=== PATIENT | female | born 1955 | race Caucasian/White ===

== ENCOUNTER 2019-10-24 06:59 | Outpatient (CLI) | payer BC, SELFPAY ==
--- NOTE | 2019-10-24 07:20 | MM_ITS ---
WS: [id number] BILATERAL DIGITAL SCREENING MAMMOGRAPHY WITH CAD CLINICAL INFORMATION: SCREENING HISTORY: Screening mammogram. No current complaints. COMPARISON: None. TECHNIQUE: Bilateral CC and MLO views. FINDINGS: The breasts are composed of heterogeneous fibroglandular density tissue, which can limit the detectio n of small underlying mass lesions. No suspicious mass, asymmetry, calcifications, or architectural d istortion. No evidence of malignancy. Lucent centered calcifications. MM/[place] [id number] IMPRESSION: BI-RADS: 2-Benign FOLLOW UP: 1 Year Follow-up Recommend return to annual screening mammography.
== END 2019-10-24 07:00 | disposition home or self-care (01) ==
LOC: RADSHAW 07:06
PROVIDERS: PCP Nurse Practitioner Family; Visit Provider Nurse Practitioner Family
DX: Z12.31 Encounter for screening mammogram for malignant neoplasm of breast (principal)
CPT/HCPCS: 77067

== ENCOUNTER → 2019-11-16 08:29 | Outpatient (BNVA) | payer BC, SELFPAY | PROVIDERS: PCP Nurse Practitioner Family; Referring Provider Nurse Practitioner Family; Visit Provider Anesthesiology Pain Medicine | DX: M47.816 Spondylosis without myelopathy or radiculopathy, lumbar region (principal); M54.16 Radiculopathy, lumbar region; M51.36 Other intervertebral disc degeneration, lumbar region; M54.9 Dorsalgia, unspecified; M62.830 Muscle spasm of back; Z79.891 Long term (current) use of opiate analgesic | CPT/HCPCS: 99204 ==

== ENCOUNTER 2019-11-24 09:51 | Outpatient (CLI) | payer BC, SELFPAY ==
--- NOTE | 2019-11-24 10:27 | MR_ITS ---
WS: [id number] MRI LUMBAR SPINE NONCONTRAST TECHNIQUE: Sagittal T1, T2 and STIR imaging. Axial T1 and T2 imaging. CLINICAL INFORMATION: M54.16 Radiculopathy, lumbar region COMPARISON: None. FINDINGS: Mild lumbar curve. No acute compression. No high-grade central canal stenosis. L1-L2: Right eccentric bulge with a tiny annular fissure. Mild right and no significant left foramina l narrowing. Spinal canal is patent. L2-L3: Small left foraminal protrusion contacts the exiting left L2 nerve root with mild left foramin al narrowing. Narrowing of the left subarticular recess. Right foramen is patent. Mild facet arthropa thy. L3-L4: Mild annular bulging with slight effacement of the ventral thecal sac. Slight narrowing of the left subarticular recess. Foramen are patent. L4-L5: Mild disc bulging with mild to moderate central canal stenosis. Impingement traversing left L5 nerve root in the subarticular recess. Moderate facet arthropathy contributes to impingement on the left subarticular recess. Left facet osteophyte or calcified synovial cyst impinges the subarticular recess. Small facet effusions. Mild right foraminal narrowing. L5-S1: No significant disc bulging. Spinal canal foramen are patent. Mild/moderate facet arthropathy. Visualized pelvic bony structures: Normal. Paravertebral soft tissues: Normal. MR/MR lumbar spine wo con* [id number] IMPRESSION: 1. Mild lumbar curve. No acute compression. 2. Mild disc bulging L4-5 with mild to moderate central canal stenosis. 3. Left facet protruding osteophyte or calcified synovial cyst impinges the mederos barticular recess and traversing left L5 nerve root. Recommend correlation left L5 nerve root symptoms. 4. Small left foraminal protrusion L2-3 with mild left foraminal narrowing. 5. Narrowing of the left L3-4 subarticular recess. 6. Mild right L4-5 foraminal narrowing. 7. Moderate facet arthropathy worse L4-5.
--- NOTE | 2019-11-24 11:00 | XR_ITS ---
WS: [id number] LUMBAR SPINE FLEXION AND EXTENSION TECHNIQUE: 3 views of the lumbar spine: Lateral neutral, flexion, and extension views. CLINICAL INFORMATION: pain COMPARISON: None. FINDINGS: Slight anterolisthesis L4 on L5 measuring 2.5 mm. No instability on flexion-extension. Mild disc spac e narrowing L4-L5 and L5-S1. Aortic calcification. Moderate facet arthropathy L4-L5 and L5-S1. XR/XR lumbar spine f/e only [id number] IMPRESSION: No instability on flexion-extension
== END 2019-11-24 09:52 | disposition home or self-care (01) ==
LOC: RADWPI 09:55
PROVIDERS: Family Provider Nurse Practitioner Family; PCP Nurse Practitioner Family; Visit Provider Anesthesiology Pain Medicine
DX: M54.16 Radiculopathy, lumbar region (principal); M47.816 Spondylosis without myelopathy or radiculopathy, lumbar region; M48.061 Spinal stenosis, lumbar region without neurogenic claudication; M51.26 Other intervertebral disc displacement, lumbar region
CPT/HCPCS: 72120; 72148

== ENCOUNTER → 2019-11-29 13:44 | Outpatient (BNVA) | payer BC, SELFPAY | PROVIDERS: PCP Nurse Practitioner Family; Visit Provider Anesthesiology Pain Medicine | DX: M47.816 Spondylosis without myelopathy or radiculopathy, lumbar region (principal); M51.36 Other intervertebral disc degeneration, lumbar region; M54.16 Radiculopathy, lumbar region; M54.9 Dorsalgia, unspecified; M62.830 Muscle spasm of back | CPT/HCPCS: 64483; 64484; 99213; J1040; J3490 ==

== ENCOUNTER → 2019-12-13 09:27 | Outpatient (BNVA) | payer BC, SELFPAY | PROVIDERS: PCP Nurse Practitioner Family; Visit Provider Anesthesiology Pain Medicine | DX: M51.36 Other intervertebral disc degeneration, lumbar region (principal); M47.816 Spondylosis without myelopathy or radiculopathy, lumbar region; M54.16 Radiculopathy, lumbar region; M54.9 Dorsalgia, unspecified; M62.830 Muscle spasm of back; M79.605 Pain in left leg; Z79.891 Long term (current) use of opiate analgesic | CPT/HCPCS: 99213 ==

== ENCOUNTER 2021-08-21 08:36 | Outpatient (CLI) | payer BC, SELFPAY ==
--- NOTE | 2021-08-21 09:26 | CT_ITS ---
WS: [id number] CT ABDOMEN AND PELVIS NONCONTRAST HISTORY: ABNORMAL WEIGHT LOSS/FATIGUE/HEMATURIA/LOWER ABD PAIN TECHNIQUE: Imaging performed through the abdomen and pelvis. Coronal and sagittal reformats are submi tted. All CT scans at [facility] use at least one of these dose optimization techniques: auto mated exposure control; mA and/or kV adjustment per patient size (includes targeted exams where dose is matched to clinical indication); or iterative reconstruction. DLP: 1076.74 mGy.cm COMPARISON: None available. Lower thorax: Lobulated 10 x 6 mm noncalcified nodule in the posterior RIGHT lower lobe. Calcified no dules at the LEFT lung base. On the workers compensation consultant localizer there are additional nodules which are not includ ed in the mid to lower RIGHT lung. These may be calcified granulomas but should be further evaluated. Heart is normal size. Small hiatal hernia. Liver: Hepatic steatosis adjacent to the falciform ligament. No bile duct dilatation. Gallbladder: Gallbladder is present and normally distended but contains numerous stones. These are ca lcified stones measuring up to 1.8 cm in diameter. No adjacent inflammation. Pancreas: Normal size and attenuation. Normal pancreatic duct. No pancreatitis or mass. Spleen: Normal. Adrenal glands: Normal. No mass. Right kidney: Enlarged kidney extends over length of 14.2 cm with perinephric stranding and edema. Mo derate to severe dilatation of the renal pelvis. There is calyceal dilatation. There are several calc ifications in the proximal ureter. The more distal calcification measures 9 x 9 mm. The more proximal calcification is larger extending over a length of 18 mm and transversely by 10 mm. There is mild pe riureteral stranding noted additional ureteral calcifications are identified. Low-attenuation 10 mm m ass in the superior pole is probably a cyst. Left kidney: Normal size kidney. No hydronephrosis or mass. No renal calcifications. Aorta: Extensive atherosclerotic plaque within the aorta. Calcification continues into the iliac keisha sergei bilaterally. No free fluid, intraperitoneal air or significant lymphadenopathy. GI tract: Normal distention of the stomach with contrast. No small bowel obstruction. Marked fecal re tention throughout the colon. The appendix is normal. Abdominal wall: Small umbilical hernia contains fat only. Pelvis: Prior hysterectomy. No adnexal mass. No adenopathy. Urinary bladder is not distended. Osseous structures: L4 anterolisthesis by [address]/CT abdomen pelvis wo con [id number] IMPRESSION: 1. Moderate to severe RIGHT hydronephrosis secondary to ureteral calcification s. There are 2 large calcifications in the proximal RIGHT ureter. The more dist al calcification measures 9 x 9 mm. More proximal calcification measures 18 x 1 0 mm. Follow-up with urology. 2. Cholelithiasis without acute cholecystitis or bile duct dilatation. Large s tones are present in the gallbladder. 3. Moderate atherosclerosis aorta. 4. No ascites or adenopathy identified. 5. Diffuse constipation. 6. Indeterminate lobulated nodule at the RIGHT lung base measures 10 x 6 mm. T here are additional nodules in the central RIGHT lung seen on the localizer miryam ging. These may be calcified. Recommend follow-up chest CT for further evaluati on. 7. Prior hysterectomy. Notified Gloria Sanders NP at 08/21/2021 12:49 PM.
[2021-08-21] MEDS: iohexol 300 mg/mL 50 mL Btl PO (12:11)
== END 2021-08-21 08:37 | disposition home or self-care (01) ==
PROVIDERS: PCP Nurse Practitioner Family; Visit Provider Nurse Practitioner Family
DX: R11.2 Nausea with vomiting, unspecified (principal); R63.4 Abnormal weight loss; R53.83 Other fatigue; R31.9 Hematuria, unspecified; R10.30 Lower abdominal pain, unspecified
CPT/HCPCS: 74176

== ENCOUNTER 2021-08-21 15:00 | Emergency (ER) | payer BC, SELFPAY ==
[2021-08-21 16:36] VITALS: BP 184/80; PULSE 61; RESP 18; TEMP 36.1; O2SAT 99
[2021-08-21 18:41] LABS: Basophils # 0.1 10^3/uL (0.0-0.1); Basophils % 0.6 %; Eosinophils # 0.2 10^3/uL (0.0-0.8); Eosinophils % 1.3 %; Hematocrit 46.4 % (37.0-47.0); Hemoglobin 15.4 g/dL (11.5-15.3); Lymphocytes # 1.7 10^3/uL (0.8-4.8); Mean Corpuscular HGB Conc 33.2 g/dL (30.0-36.0); Mean Corpuscular Hemoglobin 30.1 pg (28.0-34.0); Mean Corpuscular Volume 90.8 fl (81-99); Monocytes # 0.9 10^3/uL (0.2-0.9); Monocytes % 8.1 %; Neutrophils # 8.34 10^3/uL (1.8-7.7); Neutrophils % 74.7 %; Nucleated Red Blood Cells % 0 %; Platelet Count 279 10^3/cmm (130-400); Red Blood Count 5.11 10^6/uL (4.1-5.3); Red Cell Distribution Width 11.4 % (12.1-15.1); White Blood Count 11.2 10^3/uL (4.0-10.0)
[2021-08-21 19:01] LABS: Alanine Aminotransferase 10 U/L (0-33); Albumin Level 4.1 g/dL (3.5-5.2); Alkaline Phosphatase 67 IU/L (35-105); Aspartate Amino Transferase 12 U/L (0-32); Blood Urea Nitrogen 20 mg/dL (8-23); Calcium 9.9 mg/dL (8.5-10.5); Carbon Dioxide 26 mmol/L (22-29); Chloride 94 mmol/L (98-107); Globulin 3.4 g/dL (1.3-4.6); Glomerular Filtration Rate 45.1 mL/min (90-130); Glucose 94 mg/dL (65-115); Lipase 19 U/L (13-60); Osmolality Calculated 278 mOsm/kg (285-295); Sodium 133 mmol/L (136-145); Total Bilirubin 0.7 mg/dL (0.15-1.2); Total Protein 7.5 g/dL (6.6-8.7)
[2021-08-21 19:11] VITALS: BP 168/66; PULSE 62; RESP 18; O2SAT 97
--- NOTE | 2021-08-21 19:31 | W.ED.GENADLT ---
HPI - General Adult General: Chief complaint: General Medical Stated complaint: Doctor sent here for possible surgery Time Seen by Provider: 08/21/21 19:23 Source: patient Mode of arrival: ambulatory Limitations: no limitations History of Present Illness: 66-year-old female who states she been having some flank pain nausea vomiting over the last 2 days. States that her PCP Thursday had blood work drawn had an outpatient CT scan that was done today does show a large left-sided kidney stone with some hydronephrosis states her pain has been improving her pain currently is a 1-2 out of 10 no recent vomiting no fever no dysuria Associated symptoms: Reports vomiting; Deny chest pain, dyspnea, headache(s) or rash Review of Systems Const: Denies: fever(s), chills, body aches or change in appetite Eyes: Denies: blurry vision or eye discomfort ENMT: Denies: throat pain or dental pain Card: Denies: chest pain Resp: Denies: dyspnea GI: Reports: abdominal pain and vomiting : Denies: dysuria Musc: Denies: neck pain or back pain Skin/Breast: Denies: rash Neuro: Denies: headache(s) Psych: Denies: depression Dave/Lymph: Denies: easy bruising All/Imm: Denies: urticaria PFSH ED PFSH: Family History Other Cancer Denies family history of Anesthesia complication Bleeding disorder Social History Smoking and tobacco status: never smoked Physical Exam Const: COMMON NORMALS: no acute distress, patient oriented x3 and healthy appearing HENMT: COMMON NORMALS: normocephalic and atraumatic HEAD & SCALP: normocephalic and atraumatic Eye: COMMON NORMALS: Equal, round and reactive pupils present and EOMs intact bilaterally PUPIL: Yes Equal, round and reactive pupils present Neck/C-Spine: COMMON NORMALS: full ROM and supple Chest: COMMONS NORMALS: normal inspection of the chest and normal palpation of entire chest wall Resp: COMMON NORMALS: normal respiratory effort, No retractions, No use of accessory muscles and clear to auscultation bilaterally AUSCULTATION: clear to auscultation bilaterally Cardio: COMMON NORMALS: regular rate, regular rhythm and No murmurs present (Cardio) RATE: regular rate RHYTHM: regular rhythm GI: COMMON NORMALS: Normal to inspection, nondistended, normoactive bowel sounds present, Soft to palpation, non-tender and no masses PALPATION: Yes Soft to palpation Extremity: COMMON NORMALS: normal to inspection and full ROM Neuro: COMMON NORMALS: patient oriented x3, moves all extremities and no focal motor deficits Psych: COMMON NORMALS: mental status grossly normal, Normal thought process present and cooperative THOUGHT PROCESS: Normal thought process present Skin: COMMON NORMALS: no rashes or lesions noted and no wounds GENERAL SKIN EXAM: no rashes or lesions noted Course Vital Signs: Vital signs: Vital Signs Temperature 96.9 F L 08/21/21 16:36 Pulse Rate 56 L 08/21/21 20:11 Respiratory Rate 18 08/21/21 20:11 Blood Pressure 139/85 08/21/21 20:11 Pulse Oximetry 96 08/21/21 20:11 [facility] - General Adult Medical Decision Making Patient presents here with a kidney stone patient's been pain-free I did speak to urologist Dr. Ferreira patient's kidney function here is normal no signs urinary tract infection. Patient is stable for discharge she is to follow-up with Dr. Ferreira this week she has any worsening symptoms she is to return she understands agrees to plan. Lab Data : 08/21/21 18:30 08/21/21 18:30 Laboratory Results WBC 11.2 10^3/uL (4.0-10.0) H 08/21/21 18:30 RBC 5.11 10^6/uL (4.1-5.3) 08/21/21 18:30 Hgb 15.4 g/dL (11.5-15.3) H 08/21/21 18:30 Hct 46.4 % (37.0-47.0) 08/21/21 18:30 MCV 90.8 fl (81-99) 08/21/21 18:30 MCH 30.1 pg (28.0-34.0) 08/21/21 18:30 MCHC 33.2 g/dL (30.0-36.0) 08/21/21 18:30 RDW 11.4 % (12.1-15.1) L 08/21/21 18:30 Plt Count 279 10^3/cmm (130-400) 08/21/21 18:30 MPV 11.0 fL (7.4-10.4) H 08/21/21 18:30 Neut % (Auto) 74.7 % 08/21/21 18:30 Lymph % (Auto) 15.0 % 08/21/21 18:30 [place] % (Auto) 8.1 % 08/21/21 18: Eos % (Auto) 1.3 % 08/21/21 18: Baso % (Auto) 0.6 % 08/21/21 18:30 Neut # (Auto) 8.34 10^3/uL (1.8-7.7) H 08/21/21 18: Lymph # (Auto) 1.7 10^3/uL (0.8-4.8) 08/21/21 18: [place] # (Auto) 0.9 10^3/uL (0.2-0.9) 08/21/21 18: Eos # (Auto) 0.2 10^3/uL (0.0-0.8) 08/21/21 18: Baso # (Auto) 0.1 10^3/uL (0.0-0.1) 08/21/21: Nucleated RBC % (auto) 0 % 08/21/21: Nucleated RBCs # 0.0 /100WBC 08/21/21 18:30 Sodium 133 mmol/L (136-145) L 08/21/21 18: Potassium 4.0 mmol/L (3.5-5.1) 08/21/21: Chloride 94 mmol/L (98-107) L 08/21/21 18: Carbon Dioxide 26 mmol/L (22-29) 08/21/21 18:30 Anion Gap 17.0 (5-19) 08/21/21 18:30 BUN 20 mg/dL (8-23) 08/21/21 18: Creatinine 1.2 mg/dL (0.5-0.9) H 08/21/21 18:30 GFR Calculation 45.1 mL/min (90-130) L 08/21/21: Glucose 94 mg/dL (65-115) 08/21/21 18: Calculated Osmolality 278 mOsm/kg (285-295) L 08/21/21 18:30 Calcium 9.9 mg/dL (8.5-10.5) 08/21/21 18:30 Total Bilirubin 0.7 mg/dL (0.15-1.2) 08/21/21 18:30 AST 12 U/L (0-32) 08/21/21 18:30 ALT 10 U/L (0-33) 08/21/21 18:30 Alkaline Phosphatase 67 IU/L (35-105) 08/21/21 18:30 Total Protein 7.5 g/dL (6.6-8.7) 08/21/21 18: Albumin 4.1 g/dL (3.5-5.2) 08/21/21 18: Globulin 3.4 g/dL (1.3-4.6) 08/21/21 18: Lipase 19 U/L (13-60) 08/21/21 18:30 Urine Color Yellow (Yellow) 08/21/21 20:23 Urine Appearance Clear (CLEAR) 08/21/21 20:23 Urine pH 5 (5-7) 08/21/21 20:23 Ur Specific [place] 1.000 (1.005-1.030) L 08/21/21 20: Urine Protein Neg (Negative) 08/21/21 20: Urine Glucose (UA) Norm (Normal) 08/21/21 20: Urine Ketones 1+ (Negative) H 08/21/21 20:23 Urine Blood 3+ (Negative) H 08/21/21 20:23 Urine Nitrate Negative (Negative) 08/21/21 20: Urine Bilirubin Neg (Negative) 08/21/21 20:23 Urine Urobilinogen Norm mg/dL (Negative) 08/21/21 20: Ur Leukocyte Esterase Negative (Negative) 08/21/21 20: Amorphous Sediment Not Reportable 08/21/21 20: Discharge Plan Discharge Patient Disposition: Home Clinical Impression: Kidney stone Condition: Stable Prescriptions: New hydrocodone-acetaminophen 5-325 mg tablet 1 tab PO Q6H PRN (Reason: pain) Qty: 14 0RF ondansetron 4 mg tablet,disintegrating 4 mg PO Q6H PRN (Reason: nausea and vomiting) Qty: 14 0RF No Action atenolol 100 mg tablet 100 mg PO DAILY 0RF hydrochlorothiazide 25 mg tablet 25 mg PO DAILY 0RF lisinopril 10 mg tablet 10 mg PO DAILY 0RF meloxicam 15 mg tablet 15 mg PO DAILY 0RF simvastatin 20 mg tablet 20 mg PO DAILY 0RF gabapentin 100 mg capsule 100 mg PO TID 0RF baclofen 10 mg tablet 10 mg PO TID 0RF tramadol 50 mg tablet 50 mg PO Q6H PRN0RF Discharge Orders: Discharge ED (Routine); Ordered 08/21/21 Ordered By: Juan Alberto Weathers Referrals: Gloria Sanders NP [Primary Care Provider] - Wm Ferreira MD [Physician] - 1-3 days Discharge Diet: Advance as tolerated Discharge Activity: Resume usual activity Patient Instructions: Kidney Stones (ED), Opioid Safety Coding Level of Care Code ED Retail Store Assistant for [employer] Fwd Exam Comprehensive
[2021-08-21 19:41] VITALS: BP 158/69; PULSE 61; RESP 18; O2SAT 96
[2021-08-21] MEDS: HYDROcodone-acetaminophen 5-325 mg Tablet 1 TAB PO (19:47)
[2021-08-21 20:11] VITALS: BP 139/85; PULSE 56; RESP 18; O2SAT 96
[2021-08-21 20:46] LABS: Add Urine Microscopic? YES; Bilirubin Urine Neg (Negative); Blood Urine 3+ (Negative); Glucose Urine UA Norm (Normal); Ketones Urine 1+ (Negative); Leukocyte Esterase Urine Negative (Negative); Nitrate Urine Negative (Negative); Protein Urine Neg (Negative); Urine Appearance Clear (CLEAR); Urine Color Yellow (Yellow); Urobilinogen Urine Norm (Negative); pH Urine 5 (5-7)
[2021-08-21 21:00] VITALS: BP 131/94; PULSE 61; RESP 18; O2SAT 97
[2021-08-21 21:04] LABS: Bacteria Urine TRACE /hpf; RBC Urine 0-4 /hpf (0-2); Squamous Epithelial Cell Urine 0-4 /hpf (0-5)
[2021-08-21 21:05] LABS: Add Urine Culture? No
== END 2021-08-21 21:00 | disposition home or self-care (01) ==
PROVIDERS: Emergency Medicine; Emergency Provider Emergency Medicine; PCP Nurse Practitioner Family
DX: N20.0 Calculus of kidney (principal)
CPT/HCPCS: 80053; 81001; 83690; 85025; 99283

== ENCOUNTER 2021-08-22 08:27 | Outpatient (CLI) | payer BC, SELFPAY ==
--- NOTE | 2021-08-22 08:50 | XRR_ITS ---
PROCEDURE INFORMATION: Exam: XR Abdomen Exam date and time: 08/22/2021 9:02 AM Age: 66 years old Clinical indication: Condition or disease; Kidney or ureter condition; Calculus (stone) in kidney; Prior surgery; Surgery type: Hyst; Patient HX: Follow up RT kidney stone lower back pain x 2 months; Additional info: Right ureteral calculus TECHNIQUE: Imaging protocol: XR of the abdomen. Views: Frontal supine view of the abdomen. 1 View. COMPARISON: No relevant prior studies available. FINDINGS: Gastrointestinal tract: Coiling diverticula noted. Nonobstructive bowel gas pattern. Organs: No clear evidence of kidney stone. Bones/joints: Unremarkable. XR/XR KUB [id number] IMPRESSION: No clear evidence of kidney stone.
== END 2021-08-22 08:28 | disposition home or self-care (01) ==
LOC: RAD 08:42
PROVIDERS: PCP Nurse Practitioner Family; Visit Provider Urology
DX: N20.1 Calculus of ureter (principal)
CPT/HCPCS: 74018; 81003

== ENCOUNTER 2021-08-26 05:43 | Day surgery (SDC) | payer BC, SELFPAY ==
[2021-08-23 12:22] VITALS: BMI 28.4
--- NOTE | 2021-08-26 04:48 | W.PM.OPSUD ---
Surgery/Procedure H&P Update DATE OF PROCEDURE: August 26, 2021 DATE H&P PERFORMED: 08/22/21 H&P UPDATE INFORMATION: I have reviewed H&P completed within last 30 days, I have examined patient prior to procedure, No changes to prior documentation and H&P is in [facility] EMR on date indicated CHANGES TO PREVIOUS DOCUMENTATION: With better imaging quality stones were still not visible. 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 pH was also 5.0 on prior urinalysis x2. PLANNED PROCEDURE: Operation Date: 08/26/21 07:00 Proposed Procedures p ESWL [id number] MODIFIER 26 [id number] /N20.0/N20.1(Right) - Wm Ferreira MD s Cystoscopy(Not Applicable) - Wm Ferreira MD s Retrograde Pyelogram(Right) - Wm Ferreira MD s Ureteral Stent Placement(Right) - Wm Ferreira MD
--- NOTE | 2021-08-26 05:51 | XR_ITS ---
WS: [id number] XR KUB [id number] REASON FOR EXAM: To large right ureteral calculi FINDINGS: Large gas containing gallbladder calculi. Large right UPJ calculus nearly 2 cm in maximal dimension with adjacent proximal right ureteral calcu sarah 1 cm in maximum dimension. These calculi do not appear to changed position compared to the CT sca n of 08/21/2021 approximate in the right transverse process of L4. No new findings identified. XR/XR KUB [id number] IMPRESSION: Cholelithiasis. Right ureteral calculi as above.
[2021-08-26 06:07] VITALS: BP 132/63; PULSE 60; RESP 18; TEMP 36.2; O2SAT 98
[2021-08-26] MEDS: sodium chloride 0.9% 1,000 ML 30 ML IV (06:25)
--- NOTE | 2021-08-26 06:41 | P.ANESASSM_ITS ---
Pre-Anesthetic Assessment Height/Weight: Height 1.68 m Weight 79.832 kg Temp Pulse Resp BP Pulse Ox 97.2 F L 60 18 132/63 98 08/26/21 06:07 08/26/21 06:07 08/26/21 06:07 08/26/21 06:07 08/26/21 06:07 Preop Diagnosis: 2 large right proximal ureteral stones with obstruction Operation Date: 08/26/21 07:00 Proposed Procedures p ESWL [id number] MODIFIER 26 [id number] /N20.0/N20.1(Right) - Wm Ferreira MD s Cystoscopy(Not Applicable) - Wm Ferreira MD s Retrograde Pyelogram(Right) - Wm Ferreira MD s Ureteral Stent Placement(Right) - Wm Ferreira MD Familial anesthetic complications: none Was Beta Sae taken within 24 hours: Yes Was Clonidine taken within 24 hours: N/A Last intake: Intake Last Liquid Date 08/25/21 Last Liquid Time 23:30 Last Solid Date 08/24/21 Last Solid Time 23:30 Social No alcohol and No tobacco Exam alert, oriented x 3, clear to auscultation bilaterally and regular rate & rhythm Airway Submandibular: within normal limits Cervical ROM: within normal limits Mallampati: Class II Comments: Comments: missing some CV/HEM Hypertension Metabolic Hyperlipidemia Musc/skel Lower Back Pain and Osteoarthritis/DJD Anesthetic Plan ASA status: 2 Anesthesia: General Medications/Allergies Home Medications Medication Instructions Recorded Confirmed Last Taken Type atenolol 100 mg tablet 100 mg PO DAILY 08/30/19 08/26/21 08/25/21 History hydrochlorothiazide 25 mg tablet 25 mg PO DAILY 08/30/19 08/26/21 08/25/21 History lisinopril 10 mg tablet 10 mg PO DAILY 08/30/19 08/26/21 08/25/21 History meloxicam 15 mg tablet 15 mg PO DAILY 08/30/19 08/26/21 08/25/21 History simvastatin 20 mg tablet 20 mg PO DAILY 08/30/19 08/26/21 08/25/21 History baclofen 10 mg tablet 10 mg PO TID 11/16/19 08/26/21 08/25/21 History gabapentin 100 mg capsule 100 mg PO TID 11/16/19 08/26/21 08/25/21 History tramadol 50 mg tablet 50 mg PO Q6H PRN 11/16/19 08/26/21 08/24/21 History hydrocodone 5 mg-acetaminophen 325 1 tab PO Q6H PRN #14 tab 08/21/21 08/26/21 08/26/21 Rx mg tablet ondansetron 4 mg disintegrating 4 mg PO Q6H PRN #14 tab 08/21/21 08/26/21 08/25/21 Rx tablet Allergies Allergy/AdvReac Type Severity Reaction Status Date / Time No Known Allergies Allergy Verified 08/22/21 09:36 Current Medications Generic Name Dose Route Start Last Admin Trade Name Freq PRN Reason Stop Dose Admin Sodium Chloride 1,000 mls @ 30 mls/hr 08/26/21 06:00 08/26/21 06:25 Sodium Chloride 0.9% IV 08/27/21 05:59 30 mls/hr .Q24H RUPALI Administration PFSH Anesthesia Medical History Right ureteral calculus Family History Father , IN HIS 40'S Heart attack Other Cancer Denies family history of Anesthesia complication Bleeding disorder Social History Smoking and tobacco status: former smoker Alcohol intake: never Marital status: Current occupational status: employed Current occupation: [employer] History of recent travel: No Data Anesthesia Cardiac Studies: No Data to Display
[2021-08-26] MEDS: levofloxacin-dextrose 5 % 500 MG/100 ML PREMIX 100 MG IV (07:01)
--- NOTE | 2021-08-26 07:36 | SUR.OPER ---
omnipaque 100 ml to sterile field for retrograde pyelogram. Lot number [id number]. Expiration 05/02/2024.
--- NOTE | 2021-08-26 08:12 | P.OP_ITS ---
Operative Report Date of procedure: August 26, 2021 Pre-op diagnosis: 2 large right proximal ureteral stones with obstruction Post-op diagnosis: 2 large right proximal ureteral stones with obstruction Procedure done: 1. Cystoscopy with right retrograde ureteral José Antonio 2. Right proximal ureteral stone ESWL 3. Right ureteral stent placement (7 Bhutanese by 28 cm double-pigtail without string Implants: Right ureteral stent Specimens removed/disposition: None Pathology: None Surgeon: Jhon Artist Blacksmith: Jeremiah Niño lithotripsy technique Estimated blood loss: Minimal Urine output: Not measured Complications: None Findings: Both stones easily identified with retrograde contrast encircling the stones is filling defects. Approximately 1000 shocks administered to the lower more distal stone with good change The remaining 1500 shocks administered to the larger stone also with some but not as thorough change. Stent left indwelling. Shockwave data: 1. 2500 shocks administered with a peak intensity of 7 2. Rate initially 70 with advancement to 90. 3. 3-minute pause after approximately 300 shocks. Brief History: Mrs. Lowery is a very pleasant 66-year-old white female who presented recently with obstructing right proximal ureteral stones x2. The largest was about 18 mm the smallest was about 9.3 mm. Stones were not readily identified on plain x-ray. Urine pH was 5. It was therefore felt that the stones were likely manufacturers service representative of uric acid urolithiasis. Options discussed and ultimately elected ESWL. Procedure: After routine preoperative evaluation examination and obtaining of informed consent she was taken to the operating suite on 08/26/2021 where general anesthesia was administered without difficulty after appropriate timeout was performed, SCDs confirmed to be functioning, preoperative antibiotics administered, beta-ginny protocol confirmed. Prepped and draped in the usual sterile fashion in dorsolithotomy position paying careful attention to avoiding pressure points 21 Bhutanese cystoscope with 30 degree lens was introduced into the urethra meatus and advanced into the bladder to videoscopy. RIGHT retrograde ureteropyelogram was then performed demonstrating normal course and caliber of the ureter distal to the stones. 2 filling defects consistent with a stone seen on CT scan were confirmed. The ureter proximal to that point was dilated. A flexible tip guidewire was then easily advanced up the right ureter bypassing the stones. A second guidewire was then passed. The first was secured to the drapes as a safety wire and the second was utilized to pass an open-ended ureteral catheter just below the stones. The wire was removed. Throughout the procedure contrast was intermittently injected to help focus on the stones and assess change. A total of 1000 shocks were administered to the more distal stone with good change noted. Remaining 1500 shocks were administered to the larger more proximal stone also with some change noted. See above data for therapy. At the completion of the shockwave treatment a 7 Bhutanese by 26 cm double-pigtail stent was advanced but was too short due to the dilation and for that reason it was exchanged for a 7 Bhutanese by 28 cm double-pigtail stent which demonstrated good position. Good drainage was noted of the stent. The bladder was drained procedure was completed. She tolerated procedure well without complications and was awakened in the operating room and returned to the recovery room in stable condition. PLANS: 1. Anticipate discharge from outpatient surgery 2. Begin alkalinization with 1 teaspoon of baking soda in glass of water 4 times per day. 3. Follow-up in about [address] scan and urine pH check. CT scan will be noncontrasted to assess remaining stone burden. KUBs do not adequately show her stones
[2021-08-26 08:14] VITALS: BP 126/90; PULSE 58; RESP 14; TEMP 36.3; O2SAT 100
[2021-08-26 08:19] VITALS: BP 150/75; PULSE 54; RESP 16; O2SAT 100
[2021-08-26 08:24] VITALS: BP 149/76; PULSE 52; RESP 16; O2SAT 100
[2021-08-26 08:29] VITALS: BP 153/69; PULSE 53; RESP 16; TEMP 36.2; O2SAT 99
[2021-08-26 08:40] VITALS: BP 148/78; PULSE 51; RESP 16; TEMP 36.3; O2SAT 100
[2021-08-26] MEDS: HYDROcodone-acetaminophen 5-325 mg Tablet 1 TAB PO (09:04)
--- NOTE | 2021-08-26 13:38 | ANE.PACU2 ---
Inpatient post-anesthesia follow up: Airway intact: Yes Vital signs: Temperature 97.3 F Pulse Rate 51 Respiratory Rate 16 Blood Pressure 148/78 Pulse Oximetry 100 Oxygen Delivery Me thod Room Air Oxygen Flow Rate 3 Fraction of Inspir ed Oxygen Hydration adequate: Yes Nausea and vomiting: No Pain level: 2 Mental status: Baseline
== END 2021-08-26 09:15 | disposition home or self-care (01) ==
PROVIDERS: PCP Nurse Practitioner Family; Visit Provider Urology
PROC: (CPT 50590; principal; 2021-08-26 07:00)
PROC: 0TJB8ZZ Inspection of Bladder, Via Natural or Artificial Opening Endoscopic (ICD-10-PCS; CPT 52000; 2021-08-26 07:00)
PROC: (CPT 74420; 2021-08-26 07:00)
PROC: (CPT 50605; 2021-08-26 07:00)
DX: N20.1 Calculus of ureter (principal); N13.5 Crossing vessel and stricture of ureter without hydronephrosis; I10 Essential (primary) hypertension; E78.5 Hyperlipidemia, unspecified; M19.90 Unspecified osteoarthritis, unspecified site; Z87.891 Personal history of nicotine dependence
CPT/HCPCS: 50590; 52332; 74018; C2625; J0330; J1100; J1956; J2370; J2405; J2704; J2710; J3010; J3490; J7030

== ENCOUNTER 2021-09-26 13:26 | Outpatient (CLI) | payer BC, SELFPAY ==
--- NOTE | 2021-09-26 14:30 | CTR_ITS ---
PROCEDURE INFORMATION: Exam: CT Abdomen And Pelvis Without Contrast Exam date and time: 09/26/2021 1:56 PM Age: 66 years old Clinical indication: Condition or disease; Kidney or ureter condition; Calculus (stone) in ureter; Prior surgery; Surgery type: Gb, hyst, ; additional info: Right ureteral calculus, CT @ [facility] on 09/17/21 @ 3:15. Appt to follow TECHNIQUE: Imaging protocol: Computed tomography of the abdomen and pelvis without contrast. Radiation optimization: All CT scans at this facility use at least one of these dose optimization techniques: automated exposure control; mA and/or kV adjustment per patient size (includes targeted exams where dose is matched to clinical indication); or iterative reconstruction. COMPARISON: CT abdomen pelvis con [id number] 08/21/2021 10:13 AM RADIATION DOSE METRICS: Total DLP (mGy-cm): 1044.41 FINDINGS: Liver: Normal. No mass. Gallbladder and bile ducts: Cholelithiasis. Pancreas: Normal. No ductal dilation. Spleen: Normal. No splenomegaly. Adrenal glands: Normal. No mass. Kidneys and ureters: Right ureteral stent seen in place. Stomach and bowel: Unremarkable. No obstruction. No mucosal thickening. Appendix: No evidence of appendicitis. Intraperitoneal space: Unremarkable. No free air. No significant fluid collection. Vasculature: Scattered vascular calcifications. Lymph nodes: Unremarkable. No enlarged lymph nodes. Urinary bladder: Unremarkable as visualized. Reproductive: Unremarkable as visualized. Bones/joints: Unremarkable. No acute fracture. Soft tissues: Unremarkable. CT/CT abdomen pelvis con [id number] IMPRESSION: 1. Right ureteral stent seen in place. Negative for urinary calculus seen. 2. Cholelithiasis. 3. Scattered vascular calcifications.
== END 2021-09-26 13:27 | disposition home or self-care (01) ==
LOC: RAD 13:30
PROVIDERS: PCP Nurse Practitioner Family; Visit Provider Urology
DX: N20.1 Calculus of ureter (principal)
CPT/HCPCS: 74176; 81003; 88300

== ENCOUNTER → 2021-09-30 09:19 | Outpatient (BNVA) | payer BC, SELFPAY | PROVIDERS: PCP Nurse Practitioner Family; Visit Provider Urology | DX: N20.1 Calculus of ureter (principal); Z96.0 Presence of urogenital implants | CPT/HCPCS: 82365 ==

== ENCOUNTER 2023-12-17 11:57 | Outpatient (CLI) | payer BC, OTHER, SELFPAY ==
--- NOTE | 2023-12-17 12:00 | MM_ITS ---
WS: [id number] BILATERAL SCREENING DIGITAL TOMOSYNTHESIS MAMMOGRAM WITH CAD HISTORY: SCREENING COMPARISON: 10/24/2019 Bilateral CC and MLO views with tomosynthesis and synthetic mammography submitted. Computer aided det ection analyzed. Breast composition: The breasts are heterogeneously dense, which may obscure small masses. No suspici ous masses, microcalcifications or architectural distortion. Extensive bilateral fibroglandular densi ties. Benign calcifications. MM/[place] [id number] IMPRESSION: BI-RADS: 2-Benign FOLLOW UP: 1 Year Follow-up
== END 2023-12-17 11:58 | disposition home or self-care (01) ==
LOC: MOBLMAM 12:02
PROVIDERS: PCP Nurse Practitioner Family; Visit Provider Nurse Practitioner Family
DX: Z12.31 Encounter for screening mammogram for malignant neoplasm of breast (principal); R92.333 Mammographic heterogeneous density, bilateral breasts; R92.323 Mammographic fibroglandular density, bilateral breasts; R92.1 Mammographic calcification found on diagnostic imaging of breast
CPT/HCPCS: 77063; 77067

== ENCOUNTER 2024-01-27 14:48 | Outpatient (CLI) | payer OTHER, SELFPAY ==
--- NOTE | 2024-01-27 14:52 | XR_ITS ---
WS: [id number] SCREENING DEXA SCAN [employer] CLINICAL INFORMATION: POST MENOPAUSAL COMPARISON: None. FINDINGS: The L1-L4 bone mineral density measures 1.154 g/cm2. This corresponds to a T score score of -0.2 and Z score of 0.9. Left femoral neck bone mineral density measures 0.874 g/cm2. This corresponds to a T score of -1.1 an d Z score of -0.1. Right femoral neck bone mineral density measures 0.976 g/cm2. This corresponds to a T score -0 of and Z score of 0.8. Mean femoral neck bone mineral density measures 0.925 g/cm2. This corresponds to a T score of -0.7 an d Z score of 0.4. XR/XR DEXA axial skeleton* [id number] IMPRESSION: Normal bone mineralization. Patient's FRAX calculated 10 year probability for major osteoporotic fracture i s 8.2% and osteoporotic hip fracture is 0.6%.
== END 2024-01-27 14:49 | disposition home or self-care (01) ==
PROVIDERS: PCP Nurse Practitioner Family; Visit Provider Nurse Practitioner Family
DX: Z13.820 Encounter for screening for osteoporosis (principal); Z78.0 Asymptomatic menopausal state
CPT/HCPCS: 77080